=== PATIENT | female | born 1995 | race American Indian/Alaskan Native ===

== ENCOUNTER 2018-09-06 09:56 | Emergency (ER) | payer BC ==
[2018-09-06 10:20] VITALS: BP 124/79
--- NOTE | 2018-09-06 11:08 | Emergency Department Report ---
HPI - General Chief Complaint: Neck Pain/Injury Time Seen by Provider: 09/06/18 10:53 - HPI HPI: Room 37 The patient is a 23-year-old female presenting with a chief complaint of neck pain. The patient states this morning at 09:00 while she was lying in bed she turned to her left and heard her neck "crack." The patient states since that time she's had pain to the right side of her neck finds it difficult to tilt her head upwards or turn to the right. The patient states since she's been in the ED she has had slight improvement and is able to turn her head slightly to the right. Patient denies any preceding trauma or fever. Patient gives her pain a score of 6/10 Location: [See above] Duration: [See above] Quality: Pain Severity: [See above] Modifying factors: [see above] Context: [see above] Mode of transportation: [not driving] ED Past Medical Hx - Past Medical History Previous Medical History?: Yes Hx Asthma: Yes Additional medical history: Anemia - Surgical History Past Surgical History?: Yes Hx Breast Surgery: Yes (breast reduction) - Family History Family history: no significant - Social History Smoking Status: Never Smoker Substance Use Type: Alcohol (occasional) - Medications Home Medications: Home Medications Medication Instructions Recorded Confirmed Last Taken Type Cyclobenzaprine [Flexeril] 10 mg PO TID PRN #14 tablet 09/06/18 Unknown Rx HYDROcodone/APAP 5-325 [[place] 1 - 2 each PO Q6HR PRN #10 tablet 09/06/18 Unknown Rx 5/325] Ibuprofen [Motrin 800 MG tab] 800 mg PO Q8HR PRN #20 tablet 09/06/18 Unknown Rx ED Review of Systems ROS: Stated complaint: NECK PAIN Other details as noted in HPI Constitutional: denies: fever Eyes: denies: eye pain ENT: denies: throat pain Respiratory: no symptoms reported Cardiovascular: denies: chest pain Endocrine: no symptoms reported Gastrointestinal: denies: abdominal pain Musculoskeletal: myalgia Neurological: denies: headache Physical Exam - Physical Exam Vital Signs: Vital Signs 09/06/18 10:17 Temperature 98.2 F Pulse Rate 99 H Respiratory 18 Rate Blood Pressure 124/79 O2 Sat by Pulse 100 Oximetry Physical Exam: GENERAL: The patient is well-developed well-nourished female sitting in chair appearing to be in mild discomfort. [] HEENT: Normocephalic. Atraumatic. Extraocular motions are intact. Patient has moist mucous membranes. NECK: Supple. Trachea midline. No stridor CHEST/LUNGS: There is no respiratory distress noted. ABDOMEN: There is no abdominal distention. SKIN: There is no rash. There is no edema. There is no diaphoresis. NEURO: The patient is awake, alert, and oriented. The patient is cooperative. The patient has normal speech MUSCULOSKELETAL: There is no midline cervical tenderness. There is no axial step-offs. No swelling seen to the right side of the neck ED Course Vital Signs 09/06/18 10:17 Temperature 98.2 F Pulse Rate 99 H Respiratory 18 Rate Blood Pressure 124/79 O2 Sat by Pulse 100 Oximetry ED Medical Decision Making - Radiology Data Radiology results: report reviewed (CT neck), image reviewed (CT neck) [facility] [address] [id number] Cat Scan Report Signed Patient: VELMA ROSARIO MR#: [id number] : 1995 Acct:[id number] Age/Sex: 23 / F ADM Date: 09/06/18 Loc: ED Attending Dr: Ordering Physician: ANDREW HARRIS MD Date of Service: 09/06/18 Procedure(s): CT neck wo con Accession Number(s): [id number] cc: ANDREW HARRIS MD FINAL REPORT EXAM: CT NECK WO CON HISTORY: right neck pain after turning hearing a "crack" TECHNIQUE: CT of the neck performed. No IV contrast administered. Axial images and coronal and sagittal reformatted images were obtained. PRIORS: None. FINDINGS: There retention cysts in the maxillary sinuses. There are nonenlarged lymph nodes in the neck bilaterally. Benign-appearing dominant lymph node in right submandibular region measures 2.3 x 1.2 by 0.9 cm. Salivary glands are symmetric and unremarkable. There is no abnormal fluid collections seen. The parapharyngeal tissue planes are maintained. Thyroid gland is grossly unremarkable. The visualized osseous structures appear intact. Cervical vertebrae maintain their height and alignment. IMPRESSION: There is no acute abnormality identified. Transcribed By: JJ Dictated By: ROJELIO JACKSON MD Electronically Authenticated By: ROJELIO JACKSON MD Signed Date/Time: 09/06/18 1359 DD/ 1401 TD/TT: 09/06/18 1401 - Differential Diagnosis cervical strain, pathologic fracture Critical care attestation.: If time is entered above; I have spent that time in minutes in the direct care of this critically ill patient, excluding procedure time. ED Disposition Clinical Impression: Acute cervical myofascial strain Disposition: TO HOME OR SELFCARE Is pt being admited?: No Does the pt Need Aspirin: No Condition: Stable Instructions: Muscle Strain (ED) Additional Instructions: Return to the emergency department immediately should you develop worsening symptoms, fever, inability to tolerate food or liquid or any other concerns. Prescriptions: Cyclobenzaprine [Flexeril] 10 mg PO TID PRN #14 tablet PRN Reason: Muscle Spasm HYDROcodone/APAP 5-325 [[place] 5/325] 1 - 2 each PO Q6HR PRN #10 tablet PRN Reason: Pain Ibuprofen [Motrin 800 MG tab] 800 mg PO Q8HR PRN #20 tablet PRN Reason: Pain, Moderate (4-6) Referrals: PRIMARY CARE, [Primary Care Provider] - 3-5 Days ELISA WILSON MD [Staff Physician] - 3-5 Days (Dr. Wilson is an orthopedic surgeon. Please follow-up with him for further evaluation) Time of Disposition: 14:09
[2018-09-06] MEDS ORDERED: NORCO 5/325 PO ONE (11:15)
[2018-09-06] MEDS ORDERED: IBUPROFEN PO ONE (11:15)
--- NOTE | 2018-09-06 13:59 | Cat Scan Report ---
FINAL REPORT EXAM: CT NECK WO CON HISTORY: right neck pain after turning hearing a "crack" TECHNIQUE: CT of the neck performed. No IV contrast administered. Axial images and coronal and sagit tim reformatted images were obtained. PRIORS: None. FINDINGS: There retention cysts in the maxillary sinuses. There are nonenlarged lymph nodes in the neck bilaterally. Benign-appearing dominant lymph node in ri ght submandibular region measures 2.3 x 1.2 by 0.9 cm. Salivary glands are symmetric and unremarkable. There is no abnormal fluid collections seen. The parapharyngeal tissue planes are maintained. Thyroid gland is grossly unremarkable. The visualized osseous structures appear intact. Cervical vertebrae maintain their height and alignme nt. IMPRESSION: There is no acute abnormality identified.
== END 2018-09-06 14:26 | disposition home or self-care (01) ==
LOC: ED 09:56
DX: S16.1XXA Strain of muscle, fascia and tendon at neck level, initial encounter (principal); J45.909 Unspecified asthma, uncomplicated; D64.9 Anemia, unspecified; Z88.2 Allergy status to sulfonamides; X58.XXXA Exposure to other specified factors, initial encounter; Y93.89 Activity, other specified; Y92.009 Unspecified place in unspecified non-institutional (private) residence as the place of occurrence of the external cause; Y99.8 Other external cause status
CPT/HCPCS: 36415; 70490; 84703

== ENCOUNTER 2019-03-27 23:34 | Inpatient (IN) | payer BC ==
[2019-03-28 00:49] LABS: Basophils % (Auto) 0.5 % (0.0-1.8); Eosinophils # (Auto) 0.1 K/mm3 (0.0-0.4); Hematocrit 36.6 % (30.3-42.9); Hemoglobin 12.1 gm/dl (10.1-14.3); Lymphocytes # (Auto) 3.1 K/mm3 (1.2-5.4); Lymphocytes % (Auto) 44.2 % (13.4-35.0); Mean Corpuscular HGB Conc 33 % (30-34); Mean Corpuscular Volume 97 fl (79-97); Monocytes # (Auto) 0.3 K/mm3 (0.0-0.8); Monocytes % (Auto) 4.9 % (0.0-7.3); Platelet Count 307 K/mm3 (140-440); Red Blood Count 3.79 M/mm3 (3.65-5.03)
[2019-03-28 00:55] LABS: Bilirubin,Urine NEG (Negative); Blood,Urine NEG (Negative); Color,Urine Yellow (Yellow); Protein,Urine <15 mg/dL mg/dL (Negative); Urobilinogen,Urine < 2.0 mg/dL (<2.0)
[2019-03-28 01:07] LABS: Alanine Aminotransferase 10 units/L (7-56); Albumin 3.8 g/dL (3.9-5); BUN/Creatinine Ratio 14; Blood Urea Nitrogen 11 mg/dL (7-17); Hemolysis Index 16
[2019-03-28] MEDS ORDERED: TORADOL IV ONE (01:12)
[2019-03-28] MEDS ORDERED: ZOFRAN IV ONE ×2 (01:12→04:25)
--- NOTE | 2019-03-28 03:14 | Cat Scan Report ---
CT of the abdomen and pelvis with contrast INDICATION: Epigastric and pelvic pain times several weeks COMPARISON: None FINDINGS: Lung bases are clear. The liver, spleen, pancreas, adrenal glands and kidneys all appear no rmal. No definite gallbladder or biliary tree abnormality. No fluid or adenopathy in the upper abdome n. CT of the pelvis shows no evidence of bowel obstruction. No uterine or adnexal masses. No diverticulo sis or diverticulitis. No colitis is seen. It appears to be the appendix however is thickened at 1 cm and there may be some early periappendiceal inflammatory changes. No perforation is seen. IMPRESSION: I am suspicious of early appendicitis. Otherwise no significant abnormality. Automated exposure control was utilized to diminish radiation dose. Signer Name: He Galeas MD Signed: 03/28/2019 3:09 AM Workstation Name: [id number]
--- NOTE | 2019-03-28 03:52 | Emergency Department Report ---
ED Abdominal Pain HPI - General Chief Complaint: Abdominal Pain Stated Complaint: ABD PAIN FROM HPLORI Time Seen by Provider: 03/28/19 01:05 Source: patient Mode of arrival: Ambulatory Limitations: No Limitations - History of Present Illness Initial Comments: Patient is a nulliparous 23-year-old -[place] female with no past medical history presents to the ED with acute onset persistent diffuse abdominal pain, worse in the right lower quadrant and suprapubic area for the last 1 week. Patient states that the pain has worsened especially in the last 2 days with nausea and diarrhea. Patient denies fever, chills, vomiting, headache, chest pain, shortness of breath, dysuria, urinary frequency and urgency, vaginal bleeding, vaginal discharge or low back pain. MD Complaint: abdominal pain, other (nausea and diarrhea) -: Gradual, week(s) (1) Location: periumbilical, LLQ, RLQ, suprapubic Radiation: LLQ, RLQ, suprapubic Migration to: no migration Severity scale (0 -10): 7 Quality: aching, sharp Consistency: constant Improves With: nothing Worsens With: nothing Associated Symptoms: denies other symptoms, nausea, diarrhea. denies: vomiting, fever, chills, constipation, dysuria, hematemesis, hematochezia, melena, hematuria, anorexia, syncope - Related Data Previous Rx's Medication Instructions Recorded Last Taken Type Cyclobenzaprine [Flexeril] 10 mg PO TID PRN #14 tablet 09/06/18 Unknown Rx HYDROcodone/APAP 5-325 [[place] 1 - 2 each PO Q6HR PRN #10 tablet 09/06/18 Unknown Rx 5/325] Ibuprofen [Motrin 800 MG tab] 800 mg PO Q8HR PRN #20 tablet 09/06/18 Unknown Rx Allergies Allergy/AdvReac Type Severity Reaction Status Date / Time Sulfa (Sulfonamide AdvReac Hives Verified 09/06/18 10:17 Antibiotics) ED Review of Systems ROS: Stated complaint: ABD PAIN FROM HPLORI Other details as noted in HPI Comment: All other systems reviewed and negative Constitutional: denies: chills, fever Eyes: denies: eye pain, eye discharge, vision change ENT: denies: ear pain, throat pain Respiratory: denies: cough, shortness of breath, wheezing Cardiovascular: denies: chest pain, palpitations Endocrine: no symptoms reported Gastrointestinal: abdominal pain, nausea, diarrhea Genitourinary: denies: urgency, dysuria, discharge Musculoskeletal: denies: back pain, joint swelling, arthralgia Skin: denies: rash, lesions Neurological: denies: headache, weakness, paresthesias Psychiatric: denies: anxiety, depression Hematological/Lymphatic: denies: easy bleeding, easy bruising ED Past Medical Hx - Past Medical History Previous Medical History?: Yes Hx Asthma: Yes Additional medical history: Anemia, H.pylori - Surgical History Past Surgical History?: Yes Hx Breast Surgery: Yes (breast reduction) - Social History Smoking Status: Never Smoker Substance Use Type: None - Medications Home Medications: Home Medications Medication Instructions Recorded Confirmed Last Taken Type Cyclobenzaprine [Flexeril] 10 mg PO TID PRN #14 tablet 09/06/18 Unknown Rx HYDROcodone/APAP 5-325 [[place] 1 - 2 each PO Q6HR PRN #10 tablet 09/06/18 Unknown Rx 5/325] Ibuprofen [Motrin 800 MG tab] 800 mg PO Q8HR PRN #20 tablet 09/06/18 Unknown Rx ED Physical Exam - General Limitations: No Limitations General appearance: alert, in no apparent distress - Head Head exam: Present: atraumatic, normocephalic, normal inspection - Eye Eye exam: Present: normal appearance, PERRL, EOMI. Absent: scleral icterus, conjunctival injection, nystagmus Pupils: Present: normal accommodation - ENT ENT exam: Present: normal exam, normal orophraynx, mucous membranes moist, TM's normal bilaterally, normal external ear exam - Neck Neck exam: Present: normal inspection, full ROM. Absent: tenderness - Respiratory Respiratory exam: Present: normal lung sounds bilaterally. Absent: respiratory distress, wheezes, rales, chest wall tenderness, accessory muscle use, prolonged expiratory - Cardiovascular Cardiovascular Exam: Present: regular rate, normal rhythm, normal heart sounds. Absent: systolic murmur, diastolic murmur, rubs, gallop - GI/Abdominal GI/Abdominal exam: Present: soft, tenderness (RLQ, Suprapubic), guarding, normal bowel sounds. Absent: hyperactive bowel sounds, hypoactive bowel sounds - Rectal Rectal exam: Present: deferred - Extremities Exam Extremities exam: Present: normal inspection, full ROM, normal capillary refill - Back Exam Back exam: Present: normal inspection, full ROM. Absent: tenderness, CVA tenderness (L), muscle spasm, paraspinal tenderness, vertebral tenderness - Neurological Exam Neurological exam: Present: alert, oriented X3, CN II-XII intact, normal gait, reflexes normal - Psychiatric Psychiatric exam: Present: normal affect, normal mood - Skin Skin exam: Present: warm, dry, intact, normal color. Absent: rash ED Course Vital Signs 03/27/19 03/28/19 23:46 01:36 Temperature 97.4 F L Pulse Rate 95 H Respiratory 20 16 Rate Blood Pressure 124/82 O2 Sat by Pulse 99 Oximetry - Reevaluation(s) Reevaluation #1: 03/28/19 03:52 This is a 23-year-old -[place] female who presented to the ED with severe diffuse lower abdominal pain with nausea and diarrhea. In the ED, the patient is alert and oriented 3 and is not in distress but in pain. Vital signs are stable. Labs were drawn and abdomen and pelvis CT scan with contrast was ordered. Lab test results were reviewed and are all non-actionable. Abdomen pelvis CT scan with contrast shows appendix that is thickened at 1 cm with some early periappendiceal inflammatory changes, suspicious for early acute appendicitis. Overall, spleen, pancreas, adrenal glands and kidneys are all appearing normal. There is no definitive gallbladder or biliary tree modality. There is no evidence of bowel obstruction including an adnexal masses. There is no diverticulosis or diverticulitis or colitis seen. 03/28/19 03:54 Reevaluation #2: 03/28/19 04:34 I paged and discussed the patient's history, physical exam findings, lab test results and abdomen and pelvis CT scan with contrast report with Dr. Harris, the general surgeon prisoner classification interviewer who advised that the patient be admitted to the hospital his physician prisoner classification interviewer and he shall admit the patient later today. Subsequently I paged and discussed the patient's case with the hospitalist nishant Singh admitted the patient to the hospital. ED Medical Decision Making - Lab Data Result diagrams: 03/28/19 00:21 03/28/19 00:21 - Radiology Data Radiology results: report reviewed, image reviewed Abdomen pelvis CT scan with contrast shows spleen, pancreas, adrenal glands and kidneys which all appearing normal. There is no definitive gallbladder or biliary tree modality. There is no evidence of bowel obstruction including an adnexal masses. There is no diverticulosis or diverticulitis or colitis seen. It also shows appendix that is thickened at 1 cm with some early periappendiceal inflammatory changes, suspicious for early acute appendicitis. - Medical Decision Making This is a 23-year-old -[place] female who presented to the ED with severe diffuse lower abdominal pain with nausea and diarrhea. In the ED, the patient is alert and oriented 3 and is not in distress but in pain. Vital signs are stable. Labs were drawn and abdomen and pelvis CT scan with contrast was ordered. Lab test results were reviewed and are all non-actionable. Abdomen pelvis CT scan with contrast shows appendix that is thickened at 1 cm with some early periappendiceal inflammatory changes, suspicious for early acute appendicitis. Overall, spleen, pancreas, adrenal glands and kidneys are all appearing normal. There is no definitive gallbladder or biliary tree modality. There is no evidence of bowel obstruction including an adnexal masses. There is no diverticulosis or diverticulitis or colitis seen. These findings were discussed with Dr. Ambriz, the ED attending physician who agreed with the plan of care. I discussed the patient's case with Dr. Harris, the General Surgeon prisoner classification interviewer who advised that the hospitalit physician prisoner classification interviewer admit the patient to the hospital and he shall evaluate the patient later this morning. I then discussed the patient case with Dr. Singh, the Hospitalist Physician prisoner classification interviewer who admitted the patient to the hospital. - Differential Diagnosis Abdominal pain, Acute appendicitis, Ovarian cyst, Colitis, kidney stones Critical care attestation.: If time is entered above; I have spent that time in minutes in the direct care of this critically ill patient, excluding procedure time. ED Disposition Clinical Impression: Acute abdominal pain in right lower quadrant Acute appendicitis Qualifiers: Acute appendicitis type: unspecified acute appendicitis type Qualified Code(s): K35.80 - Unspecified acute appendicitis Disposition: OP ADMIT IP TO THIS HOSP Is pt being admited?: Yes Does the pt Need Aspirin: No Condition: Stable Instructions: Abdominal Pain (ED) Referrals: CLIFFORD GAMA MD [Primary Care Provider] - 3-5 Days Time of Disposition: 04:00 Print Language: IRISH
[2019-03-28] MEDS ORDERED: MORPHINE IV ONE (04:25)
[2019-03-28] MEDS ORDERED: ZOSYN/NS 4.5GM/100ML 4.5 GM/100 ML VIAL IV ONE (04:25)
[2019-03-28] MEDS ORDERED: NACL 0.9% 1000 ML 1,000 ML IV ONE (04:26)
[2019-03-28] MEDS ORDERED: TYLENOL PO PRN (09:41)
[2019-03-28] MEDS ORDERED: ZOFRAN IV PRN ×2 (09:41→11:32)
[2019-03-28] MEDS ORDERED: MORPHINE IV PRN (09:41)
[2019-03-28] MEDS ORDERED: SODIUM CHLORIDE FLUSH SYRINGE 10 ML IV PRN (09:41)
[2019-03-28] MEDS ORDERED: DILAUDID IV PRN (09:41)
[2019-03-28] MEDS ORDERED: PROVENTIL IH PRN (09:42)
[2019-03-28] MEDS ORDERED: NACL 0.45% 1000 ML 1,000 ML IV SCH (10:00)
--- NOTE | 2019-03-28 10:20 | Consultation ---
History of Present Illness Consult date: 03/28/19 Reason for consult: abdominal pain Requesting physician: RAE RESENDEZ Chief complaint: nausea, diarrhea, abdominal pain - History of present illness History of present illness: 23yo F presents with complaints of abdominal pain, nausea, diarrhea. She has had abdominal pain across the lower abdomen and epigastric area for 1 week. Denies any trauma or straining situation that may have contributed to it. Ibuprofen has helped to manage the pain for brief periods. The nausea and diarrhea have been going on for at least 1 year. About year ago a GI workup was done which confirmed that she had H. pylori. She was given medications for this and she completed which led to a brief improvement of her symptoms. However when her symptoms started to increase, she was unable to follow up with the GI doctor due to loss of insurance. She has been self-medicating with Prilosec once a day. Denies fevers. Has had chills. Past History Past Medical History: other (asthma) Past Surgical History: Other (breast reduction; myringotomy tubes - no complications) Social history: denies: smoking, alcohol abuse, prescription drug abuse, IV drug use Family history: no significant family history Medications and Allergies Allergies Allergy/AdvReac Type Severity Reaction Status Date / Time Sulfa (Sulfonamide AdvReac Hives Verified 09/06/18 10:17 Antibiotics) Home Medications Medication Instructions Recorded Confirmed Last Taken Type Albuterol Sulfate 200 inhalation INHALATION PRN 03/28/19 03/28/19 Unknown History Active Meds: Active Medications Acetaminophen (Tylenol) 650 mg PO Q4H PRN PRN Reason: Pain MILD(1-3)/Fever >100.5/REINA Albuterol (Proventil) 2.5 mg IH Q4HRT PRN PRN Reason: Shortness Of Breath Hydromorphone HCl (Dilaudid) 0.5 mg IV Q3H PRN PRN Reason: Pain , Severe (7-10) Sodium Chloride (Nacl 0.45% 1000 Ml) 1,000 mls @ 100 mls/hr IV DIRECT JONATHAN Morphine Sulfate (Morphine) 2 mg IV Q4H PRN PRN Reason: Pain, Moderate (4-6) Ondansetron HCl (Zofran) 4 mg IV Q8H PRN PRN Reason: Nausea And Vomiting Sodium Chloride (Sodium Chloride Flush Syringe 10 Ml) 10 ml IV BID JONATHAN Sodium Chloride (Sodium Chloride Flush Syringe 10 Ml) 10 ml IV PRN PRN PRN Reason: LINE FLUSH Review of Systems - Constitutional chills, no weight loss, no fever, no sweats, no chronic pain - Cardiovascular no chest pain, no shortness of breath - Respiratory no cough - Gastrointestinal abdominal pain, nausea, diarrhea, heartburn, no vomiting, no constipation, no change in bowel habits, no hematemesis, no coffee ground emesis, no BRBPR, no melena, no hematochezia - Genitourinary Genitourinary: no pelvic pain, no flank pain, no dysuria - Muskuloskeletal no low back pain - Integumentary no rash, no redness, no sores, no wounds Exam Vital Signs Temp Pulse Resp BP Pulse Ox 97.4 F L 95 H 20 124/82 99 03/27/19 23:46 03/27/19 23:46 03/27/19 23:46 03/27/19 23:46 03/27/19 23:46 - General physical appearance Positive: no distress, no pain, obese, other (Does not appear ill. pleasant) - Eyes Positive: normal occular movement. Negative: icteric - Respiratory Positive: normal expansion, normal respiratory effort, clear to auscultation - Cardiovascular Rhythm: regular - Abdomen Abdomen: Present: soft, tender (in epigastric area and in the lower midline area. Some tenderness in the right lower chest wall and in the RLQ. No pelvic shake tenderness. Pain was unchanged with contraction of the abdominal wall.), bowel sounds normal. Absent: distended, masses, guarding, rigid, wound, surgical scars - Integumentary no rash, no growths, no abnormal pigmentation - Neurologic Neurologic: alert and oriented to time, place and person, motor strength and sensation are grossly intact - Psychiatric Psychiatric: appropriate mood/affect, intact judgment & insight, cooperative Results - Labs 03/28/19 00:21 03/28/19 00:21 Abnormal lab results 03/28/19 03/28/19 03/28/19 Range/Units 00:21 00:21 00:22 RDW 13.0 L (13.2-15.2) % Lymph % (Auto) 44.2 H (13.4-35.0) % Albumin 3.8 L (3.9-5) g/dL Urine pH 9.0 H (5.0-7.0) Diabetes panel 03/28/19 Range/Units 00:21 Sodium 138 (137-145) mmol/L Potassium 3.7 (3.6-5.0) mmol/L Chloride 105.8 (98-107) mmol/L Carbon Dioxide 23 (22-30) mmol/L BUN 11 (7-17) mg/dL Creatinine 0.8 (0.7-1.2) mg/dL Glucose 84 (65-100) mg/dL Calcium 9.0 (8.4-10.2) mg/dL AST 12 (5-40) units/L ALT 10 (7-56) units/L Alkaline Phosphatase 69 (35-129) units/L Total Protein 8.2 (6.3-8.2) g/dL Albumin 3.8 L (3.9-5) g/dL Calcium panel 03/28/19 Range/Units 00:21 Calcium 9.0 (8.4-10.2) mg/dL Albumin 3.8 L (3.9-5) g/dL Pituitary panel 03/28/19 Range/Units 00:21 Sodium 138 (137-145) mmol/L Potassium 3.7 (3.6-5.0) mmol/L Chloride 105.8 (98-107) mmol/L Carbon Dioxide 23 (22-30) mmol/L BUN 11 (7-17) mg/dL Creatinine 0.8 (0.7-1.2) mg/dL Glucose 84 (65-100) mg/dL Calcium 9.0 (8.4-10.2) mg/dL Adrenal panel 03/28/19 Range/Units 00:21 Sodium 138 (137-145) mmol/L Potassium 3.7 (3.6-5.0) mmol/L Chloride 105.8 (98-107) mmol/L Carbon Dioxide 23 (22-30) mmol/L BUN 11 (7-17) mg/dL Creatinine 0.8 (0.7-1.2) mg/dL Glucose 84 (65-100) mg/dL Calcium 9.0 (8.4-10.2) mg/dL Total Bilirubin 0.20 (0.1-1.2) mg/dL AST 12 (5-40) units/L ALT 10 (7-56) units/L Alkaline Phosphatase 69 (35-129) units/L Total Protein 8.2 (6.3-8.2) g/dL Albumin 3.8 L (3.9-5) g/dL - Imaging CT scan - abdomen: report reviewed, image reviewed CT scan - pelvis: report reviewed, image reviewed Assessment and Plan - Patient Problems (1) Abdominal pain Current Visit: Yes Status: Acute Qualifiers: Abdominal location: unspecified location Qualified Code(s): R10.9 - Unspecified abdominal pain Plan to address problem: Pt stable. Her history is not consistent with a diagnosis of appendicitis. I think there are 2 separate issues. I think her nausea and diarrhea, which have been going on for 1 year, are likely GERD related. She needs follow-up with a GI doctor for evaluation and management. The abdominal pain is a separate issue. During the exam, when she contracted her abdominal wall, she continued to have the same level of pain. The multiple locations of pain, including the right lower chest wall are not consistent with appendicitis. I think this pain is musculoskeletal in nature. The patient has doubts about this. The only evidence to support appendicitis diagnosis is the CT scan that showed a mildly thickened appendix. The periappendiceal tissue appeared fairly normal to me. I had a fairly extensive discussion with the patient and family on 2 separate occasions. I returned after my initial interview and spoke with the whole family as well. I explained very clearly that I am not convinced that removing the appendix will help with any of her symptoms. The only advantage I see for removing the appendix is that it will remove it as a possibility as a cause of her symptoms. I would be willing to do the surgery only under the condition that she and the family understand that there is a good chance she will continue to have the symptoms after surgery. Patient and family were in agreement to move forward with surgery and they understood that this may not help with her symptoms. Procedure, risks, benefits were discussed. All questions were answered. Consent was obtained. We will proceed to surgery today. His call with questions Time = 60 minutes
[2019-03-28] MEDS ORDERED: SUBLIMAZE IV PRN (11:32)
--- NOTE | 2019-03-28 11:33 | Anesthesia Day of Surgery ---
Anesthesia Day of Surgery - Day of Surgery Patient Examined: Yes Patient H&P Reviewed: Yes Patient is NPO: Yes
--- NOTE | 2019-03-28 11:34 | Anesthesia Consultation ---
Anesthesia Consult and Med Hx Date of service: 03/28/19 - Airway Anesthetic Teeth Evaluation: Good ROM Head & Neck: Adequate Mental/Hyoid Distance: Adequate Mallampati Class: Class II Intubation Access Assessment: Probably Good - Pre-Operative Health Status ASA Pre-Surgery Classification: ASA2, Emergency Proposed Anesthetic Plan: General - Pulmonary Hx Asthma: Yes (Stable; on albuterol qd) - Gastrointestinal Hx Ulcer: Yes (+H. Pylori) Hx Gastroesophageal Reflux Disease: Yes (Occasional and no daily RX) - Hematic Hx Anemia: Yes Hx Sickle Cell Disease: No - Other Systems Hx Obesity: Yes
[2019-03-28] MEDS ORDERED: ceFAZolin 2 GM in NACL 0.9% 100 ML IV ONE (12:00)
[2019-03-28] MEDS ORDERED: DIPRIVAN 10 MG/ML IV ONE (12:10)
[2019-03-28] MEDS ORDERED: ZOFRAN ONE (12:10)
[2019-03-28] MEDS ORDERED: DECADRON ONE (12:10)
[2019-03-28] MEDS ORDERED: SUBLIMAZE ONE (12:10)
[2019-03-28] MEDS ORDERED: MARCAINE-EPI 0.25%-1:200,000 INFILTRATI ONE ×2 (12:58→14:19)
[2019-03-28] MEDS ORDERED: XYLOCAINE 1% 20 mL ONE (12:58)
[2019-03-28] MEDS ORDERED: ANCEF ONE (13:27)
[2019-03-28] MEDS ORDERED: BLOXIVERZ ONE (13:59)
[2019-03-28] MEDS ORDERED: ROBINUL ONE (13:59)
[2019-03-28] MEDS ORDERED: ZEMURON IV ONE (14:00)
[2019-03-28] MEDS ORDERED: NORCO 5/325 PO PRN (14:14)
[2019-03-28] MEDS ORDERED: XYLOCAINE 1% 20 mL INFILTRATI ONE (14:17)
[2019-03-28] MEDS ORDERED: DILAUDID ONE (14:21)
[2019-03-28] MEDS: DILAUDID IV PRN ×2 (14:21→14:28)
--- NOTE | 2019-03-28 14:21 | Post Operative Note ---
Date of procedure: 03/28/19 (dictation:[id number]) Pre-op diagnosis: acute appendicitis Post-op diagnosis: same Findings: long appendix with minimal thickening. minimal inflammation? Procedure: Lap appy IVF 800cc EBL <10cc Anesthesia: GETA Surgeon: NATHANAEL QUIÑONEZ Estimated blood loss: minimal Pathology: list (appendix) Specimen disposition: to lab Condition: stable Disposition: PACU
--- NOTE | 2019-03-28 14:32 | History and Physical Report ---
History of Present Illness Date of examination: 03/28/19 Date of admission: 03/28/19 07:49 Chief complaint: Upper and lower abdominal pain History of present illness: Patient is a 23-year-old -[place] female with history of asthma and obesity who presented to the ED on account of 5 days history of upper and lower abdominal pain. She described it as sharp in character, rated 10 over 10, nonradiating and constant in duration. No known aggravating or relieving factors. She has associated nausea without vomiting, diarrhea and chills without fever. She denies dysuria, urinary frequency or bleeding from any orifice. No chest pain, shortness of breath, palpitation, headaches, dizziness, syncope or loss of consciousness. No preceding history of trauma. Past History Past Medical History: other (asthma, obesity) Past Surgical History: Other (breast reduction; myringotomy tubes - no co mplications) Social history: smoking (5 years history of cigarette smoking. She stated that she quit about a month ago. She denies alcohol or illicit drug use). denies: alcohol abuse, prescription drug abuse, IV drug use Family history: hypertension (grandmother), other (mother has asthma) Medications and Allergies Allergies Allergy/AdvReac Type Severity Reaction Status Date / Time Sulfa (Sulfonamide AdvReac Hives Verified 09/06/18 10:17 Antibiotics) Home Medications Medication Instructions Recorded Confirmed Last Taken Type Albuterol Sulfate 200 inhalation INHALATION PRN 03/28/19 03/28/19 Unknown History Active Meds: Active Medications Acetaminophen (Tylenol) 650 mg PO Q4H PRN PRN Reason: Pain MILD(1-3)/Fever >100.5/REINA Acetaminophen/Hydrocodone Bitart ([place] 5/325) 1 each PO Q6H PRN PRN Reason: Pain, Moderate (4-6) Albuterol (Proventil) 2.5 mg IH Q4HRT PRN PRN Reason: Shortness Of Breath Fentanyl (Sublimaze) 50 mcg IV Q5MIN PRN PRN Reason: Pain , Severe (7-10) Hydromorphone HCl (Dilaudid) 0.5 mg IV Q3H PRN PRN Reason: Pain , Severe (7-10) Hydromorphone HCl (Dilaudid) 0.5 mg IV Q10MIN PRN PRN Reason: Pain , Severe (7-10) Sodium Chloride (Nacl 0.45% 1000 Ml) 1,000 mls @ 100 mls/hr IV DIRECT JONATHAN Stop: 03/28/19 20:00 Morphine Sulfate (Morphine) 2 mg IV Q4H PRN PRN Reason: Pain, Moderate (4-6) Ondansetron HCl (Zofran) 4 mg IV Q8H PRN PRN Reason: Nausea And Vomiting Ondansetron HCl (Zofran) 4 mg IV ONCE PRN PRN Reason: Nausea And Vomiting Pantoprazole Sodium (Protonix) 40 mg PO BID JONATHAN Sodium Chloride (Sodium Chloride Flush Syringe 10 Ml) 10 ml IV BID JONATHAN Sodium Chloride (Sodium Chloride Flush Syringe 10 Ml) 10 ml IV PRN PRN PRN Reason: LINE FLUSH Review of Systems All systems: negative (except as documented in the HPI, 14 systems reviewed with the patient were negative) Exam - Constitutional Vitals: Temp Pulse Resp BP Pulse Ox 97.7 F 70 18 102/61 100 03/28/19 09:36 03/28/19 09:36 03/28/19 09:36 03/28/19 09:36 03/28/19 09:36 General appearance: Present: no acute distress, obese - EENT Eyes: Present: PERRL, EOM intact ENT: hearing intact, clear oral mucosa - Neck Neck: Present: supple, normal ROM - Respiratory Respiratory effort: normal Respiratory: bilateral: CTA - Cardiovascular Rhythm: regular Heart Sounds: Present: S1 & S2. Absent: rub, click - Extremities Extremities: pulses symmetrical, No edema Peripheral Pulses: within normal limits - Abdominal General gastrointestinal: Present: soft, tender (epigastrium, lower abdomen and RT upper quadrant tenderness), non-distended, normal bowel sounds Female genitourinary: Present: deferred - Integumentary Integumentary: Present: clear, warm, dry - Musculoskeletal Musculoskeletal: gait normal, strength equal bilaterally - Psychiatric Psychiatric: appropriate mood/affect, intact judgment & insight - Neurologic Neurologic: CNII-XII intact, moves all extremities Results - Labs CBC & Chem 7: 03/28/19 00:21 08 00:21 Labs: Laboratory Last Values WBC 7.1 K/mm3 (4.5-11.0) 03/28/19 00:21 RBC 3.79 M/mm3 (3.65-5.03) 03/28/19 00:21 Hgb 12.1 gm/dl (10.1-14.3) 03/28/19 00:21 Hct 36.6 % (30.3-42.9) 03/28/19 00:21 MCV 97 fl (79-97) 03/28/19 00:21 MCH 32 pg (28-32) 03/28/19 00:21 MCHC 33 % (30-34) 03/28/19 00:21 RDW 13.0 % (13.2-15.2) L 03/28/19 00:21 Plt Count 307 K/mm3 (140-440) 03/28/19 00:21 Lymph % (Auto) 44.2 % (13.4-35.0) H 03/28/19 00:21 [place] % (Auto) 4.9 % (0.0-7.3) 03/28/19 00:21 Eos % (Auto) 2.0 % (0.0-4.3) 03/28/19 00:21 Baso % (Auto) 0.5 % (0.0-1.8) 03/28/19 00:21 Lymph # 3.1 K/mm3 (1.2-5.4) 03/28/19 00:21 [place] # 0.3 K/mm3 (0.0-0.8) 03/28/19 00:21 Eos # 0.1 K/mm3 (0.0-0.4) 03/28/19 00:21 Baso # 0.0 K/mm3 (0.0-0.1) 03/28/19 00: Seg Neutrophils % 48.4 % (40.0-70.0) 03/28/19 00: Seg Neutrophils # 3.4 K/mm3 (1.8-7.7) 03/28/19 00:21 Sodium 138 mmol/L (137-145) 03/28/19 00:21 Potassium 3.7 mmol/L (3.6-5.0) 03/28/19 00:21 Chloride 105.8 mmol/L (98-107) 03/28/19 00:21 Carbon Dioxide 23 mmol/L (22-30) 03/28/19 00:21 13 mmol/L 03/28/19 00:21 BUN 11 mg/dL (7-17) 03/28/19 00:21 0.8 mg/dL (0.7-1.2) 03/28/19 00:21 Estimated GFR > 60 ml/min 03/28/19 00:21 14 % 03/28/19 00:21 Glucose 84 mg/dL (65-100) 03/28/19 00:21 Calcium 9.0 mg/dL (8.4-10.2) 03/28/19 00:21 0.20 mg/dL (0.1-1.2) 03/28/19 00:21 AST 12 units/L (5-40) 03/28/19 00:21 ALT 10 units/L (7-56) 03/28/19 00:21 69 units/L (35-129) 03/28/19 00:21 8.2 g/dL (6.3-8.2) 03/28/19 00:21 3.8 g/dL (3.9-5) L 03/28/19 00:21 0.9 % 03/28/19 00:21 28 units/L (13-60) 03/28/19 00:21 HCG, Qual Negative (Negative) 03/28/19 00:21 Yellow (Yellow) 03/28/19 00:22 Clear (Clear) 03/28/19 00:22 9.0 (5.0-7.0) H 03/28/19 00:22 Ur Specific [place] 1.021 (1.003-1.030) 03/28/19 00:22 <15 mg/dl mg/dL (Negative) 03/28/19 00:22 Neg mg/dL (Negative) 03/28/19 00:22 Neg mg/dL (Negative) 03/28/19 00:22 Neg (Negative) 03/28/19 00:22 Neg (Negative) 03/28/19 00:22 Neg (Negative) 03/28/19 00:22 < 2.0 mg/dL (<2.0) 03/28/19 00:22 Ur Leukocyte Esterase Tr (Negative) 03/28/19 00:22 1.0 /HPF (0.0-6.0) 03/28/19 00:22 2.0 /HPF (0.0-6.0) 03/28/19 00:22 U Epithel Cells (Auto) 8.0 /HPF (0-13.0) 03/28/19 00:22 - Imaging and Cardiology CT scan - abdomen: report reviewed CT scan - pelvis: report reviewed Assessment and Plan Assessment and plan: Acute appendicitis -IV antibiotic given in the ED -For lap appendectomy today -Surgery consulted History of asthma -No acute exacerbation -PRN neb tx Morbid obesity with BMI of 40.7 -Lifestyle modification recommended Disposition: Discharge planning post surgery Time spent: 30 minutes
[2019-03-28] MEDS ORDERED: NACL 0.9% 1000 ML 1,000 ML ONE (14:33)
--- NOTE | 2019-03-28 14:45 | Operative Report ---
PREOPERATIVE DIAGNOSIS: Early appendicitis. POSTOPERATIVE DIAGNOSIS: Early appendicitis. PROCEDURE: Laparoscopic appendectomy. ATTENDING PHYSICIAN: Subhash Harris MD ANESTHESIA: General. ESTIMATED BLOOD LOSS: Minimal. FLUIDS: 800 mL. FINDINGS: Long slightly thickened appendix perhaps with mild inflammation. No surrounding inflammatory changes or purulent fluid. Rest of the organs were normal. Gallbladder was normal. Liver was normal. Intestines otherwise appeared normal. SPECIMENS: Appendix. DRAINS: None. COMPLICATIONS: None. DISPOSITION: Stable, transported to recovery. INDICATIONS: This is a 23-year-old female who has a complex history of one year of nausea and diarrhea and then one week of upper and lower abdominal pain. CT scan was done in the ER for evaluation, only abnormality was perhaps a mildly thickened and inflamed appendix. No other abnormalities were seen. I discussed this at length with the patient that her history does not fit with the CT report; however, if she wishes to proceed, we can remove the appendix just to take it out of the equation. The patient and family wished to proceed. They understood that there is a good chance that it may not help resolve her symptoms. Procedure, risks, benefits were explained to the patient. Risks included but were not limited to infection, bleeding, pain, injury to surrounding structures, possible need for open surgery, possible need for further procedures in the future. The patient understood and consented. DESCRIPTION OF PROCEDURE: The patient was brought to the operating room and placed on the table in supine position. After adequate general anesthesia was established, the patient was prepped and draped in usual sterile fashion. Ancef had been given prior to start of the case. SCDs were in place. Time-out was called. I began by placing a Veress needle in left upper quadrant. I was able to insufflate on the first attempt. Using the Optiview technique, I placed a 5 mm port in the left lower quadrant. Her abdominal wall was very thick; therefore, we had to hub the port. Thereafter, under direct vision, I placed a 12 mm port at the umbilicus and the 5 mm port in the suprapubic area. We checked the area of the Veress needle insertion. There was absolutely no evidence of injury underneath. Veress needle was removed. The patient was placed in Trendelenburg position, rotated to the left, identified easily where the appendix was. Please see the above findings for details on appearance of the surrounding tissue. I dissected the mesoappendix down to the base with a LigaSure device. Base was divided with the laparoscopic stapler using a blue load. Staple line was flushed with the cecum and hemostatic. Specimen was placed in EndoCatch bag. We examined the surrounding area. There was absolutely no evidence of any bleeding, leakage of intestinal contents, pus, etc. Everything looked very good. We removed the EndoCatch bag from the 12 mm umbilical port site. I closed that site with a Sung-Sarai fascial closure device using a 0 Vicryl stitch. We then desufflated the abdomen, removed the two other ports. Additional local was injected into all the port sites and skin was closed with 4-0 Monocryl subcuticular stitches. Skin was cleaned and dried. Dermabond was placed. The patient tolerated the procedure well. There were no complications. All counts were correct at the end of the case. JOB# [id number] ELIAN/AMBER
[2019-03-28] MEDS: SODIUM CHLORIDE FLUSH SYRINGE 10 ML IV SCH ×2 (18:05→22:59)
[2019-03-28] MEDS: PROTONIX PO SCH (22:53)
[2019-03-29 04:25] LABS: Basophils % (Auto) 0.2 % (0.0-1.8); Hematocrit 34.7 % (30.3-42.9); Hemoglobin 11.9 gm/dl (10.1-14.3); Lymphocytes # (Auto) 1.2 K/mm3 (1.2-5.4); Mean Corpuscular HGB Conc 34 % (30-34); Mean Corpuscular Volume 94 fl (79-97); Monocytes # (Auto) 0.2 K/mm3 (0.0-0.8); Monocytes % (Auto) 1.9 % (0.0-7.3); Platelet Count 302 K/mm3 (140-440); Red Cell Distribution Width 12.6 % (13.2-15.2)
[2019-03-29 04:50] LABS: BUN/Creatinine Ratio 8; Blood Urea Nitrogen 5 mg/dL (7-17); Calcium 9.2 mg/dL (8.4-10.2); Hemolysis Index 3
[2019-03-29] MEDS: PROTONIX PO SCH (09:02)
[2019-03-29] MEDS: SODIUM CHLORIDE FLUSH SYRINGE 10 ML IV SCH (09:04)
--- NOTE | 2019-03-29 10:33 | Discharge Summary ---
Providers - Providers Date of Admission: 03/28/19 07:49 Attending physician: ADRIANA APONTE MD 03/28/19 04:44 Consult to Physician [CONS] Routine Comment: Consulting Provider: NATHANAEL QUIÑONEZ Physician Instructions: Admit to hospitalist, will consult, keep NPO Reason For Exam: Acute appendicitis [facility] Condition: Stable Disposition: DC-01 TO HOME OR SELFCARE Time spent for discharge: 33 mins Core Measure Documentation - Palliative Care Palliative Care/ Comfort Measures: Not Applicable - Core Measures Any of the following diagnoses?: none Exam - Constitutional Vitals: Temp Pulse Resp BP Pulse Ox 97.9 F 74 18 97/47 97 03/29/19 03:59 03/29/19 03:59 03/29/19 03:59 03/29/19 03:59 03/29/19 03:59 General appearance: Present: no acute distress, well-nourished - EENT Eyes: Present: PERRL ENT: hearing intact, clear oral mucosa - Neck Neck: Present: supple, normal ROM - Respiratory Respiratory effort: normal Respiratory: bilateral: CTA - Cardiovascular Heart Sounds: Present: S1 & S2. Absent: rub, click - Extremities Extremities: pulses symmetrical, No edema Peripheral Pulses: within normal limits - Abdominal General gastrointestinal: Present: soft, non-tender, non-distended, normal bowel sounds Female genitourinary: Present: normal - Integumentary Integumentary: Present: clear, warm, dry - Musculoskeletal Musculoskeletal: gait normal, strength equal bilaterally - Psychiatric Psychiatric: appropriate mood/affect, intact judgment & insight - Neurologic Neurologic: CNII-XII intact, moves all extremities Plan Follow up with: CLIFFORD GAMA MD [Primary Care Provider] - 3-5 Days Prescriptions: Albuterol Sulfate 200 inhalation INHALATION PRN #1 pump HYDROcodone/APAP 5-325 [[place] 5-325 mg TAB] 1 each PO Q6H PRN #14 tablet PRN Reason: Pain, Moderate (4-6)
--- NOTE | 2019-03-29 10:47 | Progress Note ---
Assessment and Plan - Patient Problems (1) Abdominal pain Current Visit: Yes Status: Acute Qualifiers: Abdominal location: unspecified location Qualified Code(s): R10.9 - Unspecified abdominal pain Plan to address problem: Pt stable. s/p lap appy. - POD#1. Appears to be doing well. Rec: 1) ok to d/c home 2) diet as tolerated 3) would continue Protonix 40mg BID and have her f/u with GI 4) may shower tomorrow. Pat dry wounds. Remove all dressings tomorrow. 5) f/u in 7-10 days in office. Please call with questions. Subjective Date of service: 03/29/19 Patient Reports: Positive: no new complaints, feels better, pain is less, tolerating a regular diet, nausea (less so). Negative: vomiting Objective Vital Signs - 12hr 03/28/19 03/28/19 03/29/19 23:00 23:39 03:59 Temperature 97.8 F 97.9 F Pulse Rate 84 74 Respiratory 18 18 Rate Blood Pressure 116/64 97/47 O2 Sat by Pulse 97 96 97 Oximetry - General physical appearance no distress, no pain, other (looks well) - Eyes normal occular movement - Respiratory normal expansion, normal respiratory effort - Abdomen soft, tender (mild in upper and lower abdomen), not distended, not guarding, not rigid, surgical scars (dressings dry. ) - Integumentary no rash, no growths, no abnormal pigmentation - Psychiatric oriented to time, oriented to person, oriented to place, speech is normal, memory intact - Labs 03/29/19 04:06 03/29/19 04:06 Diabetes panel 03/29/19 Range/Units 04:06 Sodium 137 (137-145) mmol/L Potassium 4.3 (3.6-5.0) mmol/L Chloride 105.2 (98-107) mmol/L Carbon Dioxide 22 (22-30) mmol/L BUN 5 L (7-17) mg/dL Creatinine 0.6 L (0.7-1.2) mg/dL Glucose 111 H (65-100) mg/dL Calcium 9.2 (8.4-10.2) mg/dL Calcium panel 03/29/19 Range/Units 04:06 Calcium 9.2 (8.4-10.2) mg/dL Pituitary panel 03/29/19 Range/Units 04:06 Sodium 137 (137-145) mmol/L Potassium 4.3 (3.6-5.0) mmol/L Chloride 105.2 (98-107) mmol/L Carbon Dioxide 22 (22-30) mmol/L BUN 5 L (7-17) mg/dL Creatinine 0.6 L (0.7-1.2) mg/dL Glucose 111 H (65-100) mg/dL Calcium 9.2 (8.4-10.2) mg/dL Adrenal panel 03/29/19 Range/Units 04:06 Sodium 137 (137-145) mmol/L Potassium 4.3 (3.6-5.0) mmol/L Chloride 105.2 (98-107) mmol/L Carbon Dioxide 22 (22-30) mmol/L BUN 5 L (7-17) mg/dL Creatinine 0.6 L (0.7-1.2) mg/dL Glucose 111 H (65-100) mg/dL Calcium 9.2 (8.4-10.2) mg/dL
[2019-03-29 11:59] VITALS: BP 90/42
--- NOTE | 2019-03-29 16:02 | Post Anesthesia Evaluation ---
- Post Anesthesia Evaluation Patient Participated: Yes Airway Patent: Yes Stable Respiratory Function: Yes Nausea/Vomiting: No Temp > 96.8F: Yes Pain Manageable: Yes Adequeate Hydration: Yes Anesthesia Complications: No Block Receding Appropriately: Not Applicable Patient on Ventilator: No
== END 2019-03-29 13:10 | disposition home or self-care (01) | DRG 342 ==
LOC: ED 23:34 → 3B-SURG 03-28 07:49
PROVIDERS: ADMIT Internal Medicine; ATTEND Internal Medicine
PROC: 0DTJ4ZZ Resection of Appendix, Percutaneous Endoscopic Approach (ICD-10-PCS; principal; 2019-03-28)
DX: K35.80 Unspecified acute appendicitis (principal); Z68.41 Body mass index [BMI] 40.0-44.9, adult; J45.909 Unspecified asthma, uncomplicated; E66.01 Morbid (severe) obesity due to excess calories; Z88.2 Allergy status to sulfonamides; Z87.891 Personal history of nicotine dependence; K21.9 Gastro-esophageal reflux disease without esophagitis; D64.9 Anemia, unspecified; Z82.49 Family history of ischemic heart disease and other diseases of the circulatory system; Z82.5 Family history of asthma and other chronic lower respiratory diseases; Z79.899 Other long term (current) drug therapy
CPT/HCPCS: 36415; 74177; 80048; 80053; 81001; 83690; 84703; 85025; 88304; G0378; J0690; J1100; J1170; J1885; J2270; J2405; J2543; J2704; J2710; J3010; J7030; Q9967

== ENCOUNTER 2021-07-24 19:04 | Emergency (ER) | payer BC | END 2021-07-25 06:34 | LOC: ED 19:04 | DX: R07.9 Chest pain, unspecified (principal); Z53.21 Procedure and treatment not carried out due to patient leaving prior to being seen by health care provider ==

== ENCOUNTER 2021-07-25 06:50 | Emergency (ER) | payer BC ==
[2021-07-25] MEDS ORDERED: DEXAMETHASONE 4 MG TAB PO ONE (07:49)
[2021-07-25] MEDS ORDERED: IPRATROPIUM 0.02% NEBU 2.5 ML IH ONE (07:49)
[2021-07-25] MEDS ORDERED: ALBUTEROL 2.5 MG/3 ML NEBU IH ONE (07:49)
--- NOTE | 2021-07-25 08:03 | Emergency Department Report ---
HPI - General Chief Complaint: Adult Asthma Time Seen by Provider: 07/25/21 07:43 - HPI HPI: 26-year-old -Citizen Of [place] female presents to the emergency department with a complaint of a 1 to 2-day history of some generalized chest discomfort that she describes as a tightness. Currently she says it is 7 out of 10 in intensity. It worsens with laying flat and laying on her side. No known alleviating factors. Patient has a history of asthma and bronchitis. She used her nebulized treatment upon waking this morning with some mild improvement. She denies any fever, cough, lower extremity swelling, nausea, vomiting, back pain or diaphoresis. The patient went to an urgent care yesterday where they told her to get ruled out for COVID-19 and that she should go to the emergency department. The patient did not feel that she had Covid as she is vaccinated and her symptoms have been more consistent with her history of asthma. She did have a negative COVID-19 test done yesterday. No recent travel or sick contacts at home. She is a tobacco smoker but denies any illicit drug use. ED Past Medical Hx - Past Medical History Hx Sickle Cell Disease: No Hx Asthma: Yes (Stable; on albuterol qd) Additional medical history: Anemia, H.pylori - Surgical History Hx Breast Surgery: Yes (breast reduction) - Social History Smoking Status: Never Smoker - Medications Home Medications: Home Medications Medication Instructions Recorded Confirmed Last Taken Type ALBUTEROL NEB's [Proventil 0.083% 2.5 mg IH TID PRN #1 box 07/25/21 Unknown Rx NEBS] Albuterol Mdi (or & Nicu Only) 2 puff IH QID PRN #8.5 gram 07/25/21 Unknown Rx [ProAir HFA Inhaler] Albuterol Sulfate 200 inhalation INHALATION PRN PRN 07/25/21 07/25/21 07/25/21 History Famotidine 20 mg PO DAILY 07/25/21 07/25/21 07/25/21 History Loratadine 10 mg PO DAILY 07/25/21 07/25/21 07/25/21 History Zofran 4 mg PO Q8HR PRN MDD 12mg 07/25/21 07/25/21 07/24/21 History ED Review of Systems ROS: Stated complaint: asthma attack Other details as noted in HPI Comment: All other systems reviewed and negative Constitutional: denies: chills, fever Eyes: denies: eye pain, vision change ENT: denies: ear pain, throat pain Respiratory: shortness of breath, wheezing Cardiovascular: chest pain (Tightness). denies: edema Gastrointestinal: denies: abdominal pain, vomiting Genitourinary: denies: dysuria, discharge Musculoskeletal: denies: back pain, arthralgia Skin: denies: rash, lesions Neurological: denies: headache, weakness Physical Exam - Physical Exam Vital Signs: Vital Signs 07/25/21 06:52 Temperature 98 F Pulse Rate 76 Respiratory 18 Rate Blood Pressure 136/70 [Right] O2 Sat by Pulse 99 Oximetry Physical Exam: GENERAL: The patient is well-developed well-nourished. HENT: Normocephalic. Atraumatic. Patient has moist mucous membranes. EYES: Extraocular motions are intact. NECK: Supple. Trachea is midline. CHEST/LUNGS: Mild expiratory wheezing. No tachypnea or accessory muscle use. There is some reproducible midsternal chest wall tenderness to palpation without crepitus or deformity. HEART/CARDIOVASCULAR: Regular. There is no tachycardia. There is no murmur. ABDOMEN: Abdomen is soft, nontender. Patient has normal bowel sounds. Obese habitus. SKIN: Skin is warm and dry. NEURO: The patient is awake, alert, and oriented. The patient is cooperative. Normal speech. MUSCULOSKELETAL: There is no tenderness or deformity. ED Course Vital Signs 07/25/21 06:52 Temperature 98 F Pulse Rate 76 Respiratory 18 Rate Blood Pressure 136/70 [Right] O2 Sat by Pulse 99 Oximetry ED Medical Decision Making - EKG Data -: EKG Interpreted by Me EKG shows normal: sinus rhythm, axis, intervals (Prolonged CT interval), QRS complexes, ST-T waves Rate: normal - EKG Data When compared to previous EKG there are: previous EKG unavailable Interpretation: other (Sinus rhythm at 74 bpm, normal axis, prolonged CT interval. No ST elevation [place]) - Radiology Data Radiology results: image reviewed interpreted by me: Chest x-ray does not show any acute process. There are no pleural effusions, obvious pneumonia and there is no pneumothorax. No widened mediastinum. - Medical Decision Making This patient presents to the emergency department with a 1 to 2-day history of some generalized chest discomfort that she describes as a tightness, but also appears to have a respiratory component as she says that she had some improvement earlier with a nebulized treatment. On examination she has some mild expiratory wheezing but does not appear in any respiratory or acute distress. There is some reproducible chest wall tenderness to palpation without crepitus or deformity. EKG does not show any morphology consistent with ST elevation myocardial infarction or any arrhythmia. Chest x-ray does not show any pneumonia, pleural effusions, pneumothorax, widened mediastinum, or any other acute process. Patient was given a breathing treatment and a dose of Decadron. Upon reevaluation she is feeling improved. She is low on the heart score and her chest discomfort is very atypical and not consistent with ACS. Critical care attestation.: If time is entered above; I have spent that time in minutes in the direct care of this critically ill patient, excluding procedure time. ED Disposition Clinical Impression: Chest wall pain, Atypical chest pain, Bronchospasm Disposition: 01 HOME / SELF CARE / HOMELESS Is pt being admited?: No Condition: Stable Instructions: Bronchospasm, Adult, Nonspecific Chest Pain, Adult, Chest Wall Pain Additional Instructions: Please follow-up with a primary care physician in the next few days. Return to the emergency department with any worsening of your symptoms, new or concerning symptoms not addressed during this current emergency department visit, or with any acute distress. Prescriptions: Albuterol Mdi (or & Nicu Only) [ProAir HFA Inhaler] 2 puff IH QID PRN #8.5 gram PRN Reason: Shortness Of Breath ALBUTEROL NEB's [Proventil 0.083% NEBS] 2.5 mg IH TID PRN #1 box PRN Reason: Wheezing Referrals: REECE GARCIA MD [Staff Physician] - 3-5 Days KENISHA WEEKS MD [Staff Physician] - 3-5 Days [facility] [Provider Group] - 3-5 Days Time of Disposition: 10:15 HEART Score - HEART Score History: Slightly suspicious EKG: Normal Age: < 45 Risk factors: 1-2 risk factors Troponin: < normal limit HEART Score: 1 - Critical Actions Critical Actions: 0-3 pts:0.9-1.7%risk of adverse cardiac event.Candidate for discharge
--- NOTE | 2021-07-25 08:17 | XRay Report ---
CHEST 2 VIEWS INDICATION / CLINICAL INFORMATION: Shortness of breath.. COMPARISON: None. FINDINGS: SUPPORT DEVICES: None. HEART / MEDIASTINUM: No significant abnormality. LUNGS / PLEURA: No significant pulmonary or pleural abnormality. No pneumothorax. ADDITIONAL FINDINGS: No significant additional findings. IMPRESSION: 1. No acute findings. Signer Name: Landon Montesinos MD Signed: 07/25/2021 8:12 AM Workstation Name: [id number]
[2021-07-25 09:54] VITALS: BP 104/60
[2021-07-25 10:16] LABS: Bilirubin,Urine NEG (Negative); Blood,Urine NEG (Negative); Color,Urine Straw (Yellow); Protein,Urine <15 mg/dL mg/dL (Negative); RBC,Urine < 1.0 /HPF (0.0-6.0); Urobilinogen,Urine < 2.0 mg/dL (<2.0)
--- NOTE | 2021-07-25 11:22 | Electrocardiograph Report ---
[facility] Test Date: 2021-07-25 Test Time: 08:10:54 Pat Name: VELMA ROSARIO Department: Room: Gender: F Realtime Captioner: JULIET : 1995 Requested By: JAMAAL ALEXANDER Order Number: [id number] Reading MD: Isidro Lott Measurements Intervals [place] Rate: 74 P: 14 AR: 226 QRS: 34 QRSD: 83 T: 27 QT: 395 QTc: 439 Interpretive Statements Sinus rhythm Prolonged AR interval No previous ECG available for comparison Electronically Signed On 07-25-2021 11:22:36 EST by Isidro Lott
== END 2021-07-25 10:32 | disposition home or self-care (01) ==
LOC: ED 06:50
DX: R07.89 Other chest pain (principal); J98.01 Acute bronchospasm; D64.9 Anemia, unspecified
CPT/HCPCS: 71046; 81001; 93005; 94640; 99284; J8540; 94644